=== PATIENT | male | born 1945 | race Caucasian/White ===

== ENCOUNTER → 2023-07-10 07:33 | Outpatient (REF) | payer BC, SELFPAY | LOC: RCS 07:33 | PROVIDERS: ATTENDING PHYSICIAN Internal Medicine Cardiovascular Disease; FAMILY PHYSICIAN Internal Medicine | DX: I25.2 Old myocardial infarction (principal) | CPT/HCPCS: 93306; Q9950 ==

== ENCOUNTER → 2023-07-11 12:07 | Outpatient (REF) | payer BC, SELFPAY ==
[2023-07-11 16:03] LABS: % Basophils 0.5 % (0-2); % Eosinophils 3.2 % (0-6); % Immature Granulocytes 0.3 % (0-0.5); % Lymphocytes 24.5 % (20.5-51.1); % Monocytes 8.6 % (1.7-9.3); % Neutrophils 62.9 % (42.2-75.2); Absolute Eosinophils 0.2 10^3/uL (0-0.7); Absolute Lymphocytes 1.5 10^3/uL (1.2-3.4); Absolute Monocytes 0.5 10^3/uL (0.1-0.6); Absolute Neutrophils 3.7 10^3/uL (1.4-6.5); Hematocrit 42.2 % (39.0-52.0); Hemoglobin 14.4 g/dL (13.0-18.0); Mean Corp Hgb Conc. 34.1 g/dL (33.0-37.0); Mean Corpuscular Hgb 30.9 pg (27.0-31.0); Mean Corpuscular Volume 90.6 fL (80.0-94.0); Mean Platelet Volume 10.9 fL (7.4-10.4); Nucleated Red Blood Cells % 0 % (-); Platelet Count 177 10^3/uL (130-400); Red Blood Cell Count 4.66 10^6/uL (4.70-6.10); Red Cell Dist. Width 12.1 % (11.5-14.5); White Blood Cell Count 5.9 10^3/uL (4.8-10.8)
[2023-07-11 16:17] LABS: ALT (SGPT) 32 U/L (0-50); AST (SGOT) 35 U/L (17-59); Albumin 4.5 g/dl (3.5-5.0); Alkaline Phosphatase 83 U/L (38-126); Blood Urea Nitrogen 20 mg/dl (9-20); Calcium 9.5 mg/dl (8.4-10.2); Carbon Dioxide 30 mmol/L (22-30); Chloride 103 mmol/L (98-107); Glucose 98 mg/dl (70-99); HDL Cholesterol 56 mg/dl; LDL Cholesterol, Calculated 82 mg/dl; Potassium 4.8 mmol/L (3.5-5.1); Sodium 137 mmol/L (135-145); Total Bilirubin 0.7 mg/dl (0.2-1.3); Total Cholesterol 161 mg/dl (50-199); Total Protein 7.1 g/dl (6.3-8.2); Triglyceride 115 mg/dl (10-149); Very Low Density Lipoprotein 23 mg/dl (0-30); eGFR > 60.00
[2023-07-11 16:44] LABS: PSA, Total - Screen 3.85 ng/ml (0.0-4.0)
== END ==
LOC: CLAB 12:07
PROVIDERS: ATTENDING PHYSICIAN Internal Medicine
DX: E78.49 Other hyperlipidemia (principal); Z80.42 Family history of malignant neoplasm of prostate; I10 Essential (primary) hypertension
CPT/HCPCS: 36415; 80053; 80061; 85025; G0103

== ENCOUNTER → 2024-09-18 11:39 | Outpatient (REF) | payer BC, SELFPAY ==
[2024-09-18 12:13] LABS: % Basophils 0.5 % (0-2); % Eosinophils 4.9 % (0-6); % Immature Granulocytes 0.4 % (0-0.5); % Lymphocytes 27.7 % (20.5-51.1); % Monocytes 6.9 % (1.7-9.3); % Neutrophils 59.6 % (42.2-75.2); Absolute Eosinophils 0.3 10^3/uL (0-0.7); Absolute Lymphocytes 1.6 10^3/uL (1.2-3.4); Absolute Monocytes 0.4 10^3/uL (0.1-0.6); Absolute Neutrophils 3.4 10^3/uL (1.4-6.5); Hemoglobin 14.3 g/dL (13.0-18.0); Mean Corpuscular Hgb 30.8 pg (27.0-31.0); Mean Corpuscular Volume 90.5 fL (80.0-94.0); Mean Platelet Volume 11.1 fL (7.4-10.4); Nucleated Red Blood Cells % 0 % (-); Platelet Count 171 10^3/uL (130-400); Red Blood Cell Count 4.64 10^6/uL (4.70-6.10); Red Cell Dist. Width 11.9 % (11.5-14.5); White Blood Cell Count 5.7 10^3/uL (4.8-10.8)
[2024-09-18 12:34] LABS: ALT (SGPT) 29 U/L (0-50); AST (SGOT) 32 U/L (17-59); Albumin 4.2 g/dl (3.5-5.0); Alkaline Phosphatase 70 U/L (38-126); Blood Urea Nitrogen 25 mg/dl (9-20); Calcium 9.8 mg/dl (8.4-10.2); Carbon Dioxide 28 mmol/L (22-30); Chloride 107 mmol/L (98-107); Glucose 116 mg/dl (70-99); HDL Cholesterol 50 mg/dl; LDL Cholesterol, Calculated 61 mg/dl; Potassium 4.5 mmol/L (3.5-5.1); Sodium 143 mmol/L (135-145); Total Bilirubin 0.7 mg/dl (0.2-1.3); Total Cholesterol 133 mg/dl (50-199); Total Protein 6.7 g/dl (6.3-8.2); Triglyceride 111 mg/dl (10-149); Very Low Density Lipoprotein 22 mg/dl (0-30); eGFR > 60.00
[2024-09-18 13:01] LABS: PSA, Total - Screen 2.99 ng/ml (0.0-4.0)
== END ==
LOC: CLAB 11:39
PROVIDERS: ATTENDING PHYSICIAN Internal Medicine
DX: I25.10 Atherosclerotic heart disease of native coronary artery without angina pectoris (principal); Z80.42 Family history of malignant neoplasm of prostate; Z12.5 Encounter for screening for malignant neoplasm of prostate
CPT/HCPCS: 36415; 80053; 80061; 85025; G0103

== ENCOUNTER → 2024-10-23 14:59 | Outpatient (REF) | payer BC, SELFPAY | LOC: HWRCS 14:59 | PROVIDERS: ATTENDING PHYSICIAN Internal Medicine Cardiovascular Disease; FAMILY PHYSICIAN Internal Medicine | DX: I48.0 Paroxysmal atrial fibrillation (principal); I25.10 Atherosclerotic heart disease of native coronary artery without angina pectoris | CPT/HCPCS: 93306 ==

== ENCOUNTER → 2024-12-30 06:43 | Outpatient (REF) | payer BC, MEDICARE, SELFPAY | LOC: RCS 06:43 | PROVIDERS: ATTENDING PHYSICIAN Internal Medicine Cardiovascular Disease; FAMILY PHYSICIAN Internal Medicine | DX: R94.31 Abnormal electrocardiogram [ECG] [EKG] (principal); I25.10 Atherosclerotic heart disease of native coronary artery without angina pectoris | CPT/HCPCS: 78452; 93017; A9500 ==

== ENCOUNTER → 2025-01-15 11:37 | Outpatient (REF) | payer BC, SELFPAY ==
[2025-01-15 13:13] LABS: Hematocrit 41.2 % (39.0-52.0); Hemoglobin 13.9 g/dL (13.0-18.0); Mean Corp Hgb Conc. 33.7 g/dL (33.0-37.0); Mean Corpuscular Volume 90.0 fL (80.0-94.0); Nucleated Red Blood Cells % 0 % (-); Platelet Count 147 10^3/uL (130-400); Red Cell Dist. Width 11.7 % (11.5-14.5)
[2025-01-15 13:26] LABS: ALT (SGPT) 23 U/L (0-50); AST (SGOT) 25 U/L (17-59); Albumin 4.5 g/dl (3.5-5.0); Alkaline Phosphatase 75 U/L (38-126); Blood Urea Nitrogen 19 mg/dl (9-20); Calcium 9.6 mg/dl (8.4-10.2); Carbon Dioxide 25 mmol/L (22-30); Chloride 107 mmol/L (98-107); Glucose 90 mg/dl (70-99); Potassium 4.1 mmol/L (3.5-5.1); Sodium 139 mmol/L (135-145); Total Protein 6.7 g/dl (6.3-8.2); eGFR > 60.00
== END ==
LOC: CLAB 11:37
PROVIDERS: ATTENDING PHYSICIAN Internal Medicine Cardiovascular Disease
DX: R94.39 Abnormal result of other cardiovascular function study (principal); Z95.810 Presence of automatic (implantable) cardiac defibrillator; I25.2 Old myocardial infarction; I63.9 Cerebral infarction, unspecified
CPT/HCPCS: 36415; 80053; 85025

== ENCOUNTER 2025-01-16 06:40 | Day surgery (SDC) | payer BC, SELFPAY ==
[2025-01-16] VITALS (14 sets, daily range): BP systolic 108–135; BP diastolic 59–96; BMI 25.2
[2025-01-16] MEDS: NSS 267 ML IV (07:22)
--- NOTE | 2025-01-16 10:59 | ITS.CL.CATH ---
Ski Technician - Catheterization
Cardiac Catheterization
Procedure Report:
CARDIAC CATHETERIZATION REPORT
Date of Procedure: 01/16/2025
Referring: Misael Guillermo M.D.
INDICATION: Known coronary artery disease, new T wave inversions on EKG, impaired anginal warning system.
PROCEDURE:
1. Left heart catheterization.
2. Coronary angiography.
A total of 27 minutes of procedural/moderate sedation was utilized. An independent medical office assistant was present to assist with and help manage the patient's level of consciousness and physiologic status.
ACCESS:
1. 6 Israeli right radial artery using a modified Seldinger technique.
CATHETERS:
1. 5 Israeli JR4.
2. 5 Israeli JL 3.5.
HEMODYNAMIC DATA
Weight (kg): 89.0
AO (s/d/x, mmHg): 90/55/69
LV (s/x mmHg): 90/12
LEFT VENTRICULOGRAPHY: Not performed.
CORONARY ANGIOGRAPHY
Dominance: Right.
Left Main: Normal size, bifurcating vessel. There is no coronary artery disease.
LAD: Normal size vessel giving rise to 1 significant diagonal. 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 There are left to left collaterals supplying the apical LAD. There is a 30-40% lesion in the mid
diagonal.
Ramus: Congenitally absent.
Circumflex: Large size, nondominant vessel that is essentially a single large obtuse marginal supplying the inferolateral wall. This marginal does give a small inferior branch. There is a 50% lesion in the proximal part of this inferior branch.
RCA: Large size, dominant vessel. There are minor luminal irregularities in the proximal RCA.
INTERVENTION(S)
None.
Closure Device: Vascular band.
Radiation (mGy): 413
DAP (cm2.Gy): 20.3
Fluoroscopy time (minutes): 1.8
CONCLUSIONS
1. 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
inferior branch of the large obtuse marginal.
2. Normal filling pressures (LVEDP = 12 mmHg at 89.0 kg).
RECOMMENDATIONS:
1. Expectant management after cardiac catheterization via right radial approach.
2. Limited weight bearing on the right wrist for one week.
3. Continue appropriate secondary prevention with high-dose, high potency statin.
4. OMT/GDMT as hemodynamics will tolerate.
5. Given the stable coronary artery disease with minimal evidence of progression, lack of anginal symptoms or electrical instability as well as the relatively small coronary territory, the decision was made to continue to medically manage this
territory.
Copy to: Misael Guillermo M.D., Rene Boyer M.D.
Amos Avendano DO, FACC, FACP
== END 2025-01-16 11:40 | disposition home or self-care (01) ==
LOC: CATH 06:40
PROVIDERS: ATTENDING PHYSICIAN Internal Medicine Cardiovascular Disease; FAMILY PHYSICIAN Internal Medicine; REFERRING PHYSICIAN Internal Medicine Cardiovascular Disease
DX: I25.119 Atherosclerotic heart disease of native coronary artery with unspecified angina pectoris (principal); I25.82 Chronic total occlusion of coronary artery; Z86.73 Personal history of transient ischemic attack (TIA), and cerebral infarction without residual deficits; I10 Essential (primary) hypertension; E78.5 Hyperlipidemia, unspecified; K21.9 Gastro-esophageal reflux disease without esophagitis; E55.9 Vitamin D deficiency, unspecified
CPT/HCPCS: 99152; 99153; 93458; C1894; Q9967

== ENCOUNTER 2025-02-20 07:32 | Day surgery (SDC) | payer BC, SELFPAY ==
[2025-02-20] VITALS (10 sets, daily range): BP systolic 107–122; BP diastolic 61–83
[2025-02-20 08:11] LABS: Hematocrit 38.6 % (39.0-52.0); Hemoglobin 13.9 g/dL (13.0-18.0); Mean Corp Hgb Conc. 36.0 g/dL (33.0-37.0); Mean Corpuscular Volume 85.8 fL (80.0-94.0); Platelet Count 144 10^3/uL (130-400); Red Cell Dist. Width 11.8 % (11.5-14.5)
[2025-02-20 08:23] LABS: Blood Urea Nitrogen 21 mg/dl (9-20); Calcium 9.4 mg/dl (8.4-10.2); Carbon Dioxide 27 mmol/L (22-30); Chloride 109 mmol/L (98-107); Estimated Creatinine Clearance 76 ml/min; Glucose 109 mg/dl (70-99); Potassium 4.0 mmol/L (3.5-5.1); Sodium 140 mmol/L (135-145); eGFR > 60.00
[2025-02-20] MEDS: VANCOCIN 530 MG IV (08:33)
--- NOTE | 2025-02-20 08:40 | W.ICD.CONTRA ---
Post ICD/FISHERY DIVISION CHIEF-D
-
History of DE?: Yes
LV Function
Left ventricular function study result?: Ejection Fraction >/= 40%
ACEI/ARB/ARNI
Patient already on ACEI/ARB/ARNI: Yes
Beta-Thaddeus
Patient already on Beta Thaddeus: Yes
--- NOTE | 2025-02-20 10:25 | ITS.CL.ICD ---
Cash Posting Clerk - ICD
Implantable Cardioverter Defibrillator
Procedure Report:
Date of Procedure: February 20, 2025.
Procedures: ICD Pulse Generator Explantation and ICD Pulse Generator Implantation.
Indication: Secondary prevention ICD. NYHA heart failure class I (no heart failure). LVEF 40% by recent nuclear study. QRS duration 92 ms with no bundle branch block. Known nonsustained VT. Known paroxysmal atrial fibrillation. Ischemic
cardiomyopathy with an occluded mid LAD. Share decision making was undertaken between the patient and Dr. Guillermo prior to proceeding with ICD pulse generator change.
Performing physician: Venkat Romo MD, [facility].
Implant: ICD Pulse Generator: Medtronic; Model# [id number]; Serial# [id number].
Explanted ICD Pulse Generator (Implanted 01/21/2016): Model# [id number]; Serial# [id number]
Retained RA Lead (Implanted 01/21/2016): Medtronic: Model# [id number]; Serial# [id number]
Retained RV Lead (Implanted 01/21/2016): Medtronic; Med[employer]onic; Model# 6935; Serial#[id number]
Technique: A time-out was performed. The procedure site was identified. The anesthesia service anesthetized the patient. Preoperative vancomycin and aztreonam was administered before the skin incision. The patient was prepped and draped in the usual
fashion. Local anesthetic was applied to the left pre-pectoral subcutaneous tissue. A 3-inch incision was made over the pulse generator. The capsule was entered with Bovie cautery. The old ICD pulse generator was explanted. No Bovie cautery was
applied to the lead system. The leads were appropriately attached to the new ICD pulse generator. The pocket was irrigated with an antibiotic solution. Hemostasis was excellent. The device and leads were placed in the pocket. The incision was closed
in three layers with an absorbable suture. Steri-strips and a silver impregnated dressing were applied. The estimated blood loss was 4 mL. There were no complications. No fluoroscopy was used.
Lead Analysis:
RA lead: P: 2.3 mV; Threshold: 1 V @ 0.4 ms; Impedance: 400 ohms.
RV lead: R: 10 mV; Threshold: 0.5 V @ 0.4 ms; Impedance: 320 ohms. HVB 80 ohms.
Final Programming: VT/VF 188 bpm; Ben: MVP (AAIR to DDDR) 60-130 bpm.
Conclusion: Uncomplicated ICD change. The ICD system is system is MRI safe/conditional.
Recommendation: Routine post ICD care.
cc: Misael Guillermo MD and Rene Boyer MD.
== END 2025-02-20 11:20 | disposition home or self-care (01) ==
LOC: CATH 07:32
PROVIDERS: ATTENDING PHYSICIAN Internal Medicine Cardiovascular Disease; FAMILY PHYSICIAN Internal Medicine; OTHER PHYSICIAN Internal Medicine Cardiovascular Disease
DX: Z45.02 Encounter for adjustment and management of automatic implantable cardiac defibrillator (principal); I48.0 Paroxysmal atrial fibrillation; I25.5 Ischemic cardiomyopathy; I47.20 Ventricular tachycardia, unspecified; I25.10 Atherosclerotic heart disease of native coronary artery without angina pectoris; Z86.73 Personal history of transient ischemic attack (TIA), and cerebral infarction without residual deficits; Z88.0 Allergy status to penicillin; I25.2 Old myocardial infarction; I10 Essential (primary) hypertension; Z79.82 Long term (current) use of aspirin; Z79.899 Other long term (current) drug therapy; Z79.01 Long term (current) use of anticoagulants
CPT/HCPCS: 33263; 80048; 85027; C1721